=== PATIENT | male | born 1950 | race Caucasian/White ===

== ENCOUNTER 2023-11-06 21:46 | Observation (INO) ==
[2023-11-06 23:38] LABS: Basophils # (auto) 0.02 K/uL (0.00-0.20); Basophils % (auto) 0.1 %; Hematocrit (blood only) 45.8 % (42.0-52.0); Hemoglobin 15.6 g/dl (14.0-18.0); Immature Granulocytes # (auto) 0.07 K/uL (0.01-0.20); Immature Granulocytes % (auto) 0.4 %; Lymphocytes # (auto) 0.65 K/uL (1.20-3.40); Lymphocytes % (auto) 3.5 %; Mean Corpuscular Hemoglobin 31.4 pg (25.0-34.0); Mean Corpuscular Hgb Conc 34.1 g/dL (32.0-36.0); Mean Corpuscular Volume 92.2 fL (80.0-100.0); Mean Platelet Volume 12.4 fL (9.4-12.4); Monocytes # (auto) 1.15 K/uL (0.11-0.59); Monocytes % (auto) 6.3 %; Neutrophils # (auto) 16.48 K/uL (1.40-6.50); Neutrophils % (auto) 89.7 %; Platelet Count 136 K/uL (130-400); RDW Coefficient of Variation 13.7 % (11.5-14.5); RDW Standard Deviation 46.5 fL (36.4-46.3); Red Blood Count 4.97 M/uL (4.70-6.10); White Blood Count 18.37 K/ul (4.8-10.8)
[2023-11-06 23:57] LABS: Alanine Aminotransferase 4 U/L (7-52); Albumin Globulin Ratio 1.7 (0.9-2); Albumin Level 4.7 gm/dl (3.4-5.0); Alkaline Phosphatase 74 U/L (34-104); Anion Gap 10 (3-11); Aspartate Aminotransferase 18 U/L (13-39); Bilirubin,Total 1.4 mg/dl (0.2-1.0); Blood Urea Nitrogen 24 mg/dl (6-23); Calcium 9.4 mg/dl (8.6-10.3); Carbon Dioxide 28 mmol/L (21-32); Chloride 103 mmol/L (98-107); Est GFR (African American) 60.2 ml/min; Est GFR (Non-African American) 51.9 ml/min; Globulin 2.7 gm/dl (2.5-4.0); Glucose 169 mg/dl (70-99(Fasting)); Potassium 4.1 mmol/L (3.5-5.1); Sodium 141 mmol/L (136-145); Total Protein 7.4 gm/dl (6.0-8.3)
[2023-11-07] MEDS: ONDANSETRON INJ 2 MG/ML 2 ML VIAL IV STA (01:13)
[2023-11-07] MEDS: SODIUM CHLORIDE 0.9% 1,000 ML IV ONE (01:15)
[2023-11-07] MEDS: HYDROmorphone INJ 0.5 MG/0.5 ML SYR IV STA (01:17)
[2023-11-07] MEDS: OPTIRAY 320 100ml IV ONE (01:30)
[2023-11-07 01:42] LABS: Appearance Urine Clear (Clear); Bacteria Urine Automated None Seen (None Seen); Bilirubin Urine Negative (Negative); Blood Urine Negative (Negative); Cast Urine Automated >20 /lpf (0-2); Color Urine Dark Yellow; Epithelial Cell Urine Auto 0-2 /hpf (0-2); Glucose Urine UA Negative (Negative); Hyaline Casts Urine Present /lpf (None Presnt); Ketones Urine Trace (Negative); Leukocyte Esterase Urine 1+ (Negative); Mucus Urine Present (None Prsent); Nitrite Urine Negative (Negative); Protein Urine Negative (Negative); RBC Urine Automated 0-2 /hpf (0-2); Specific Gravity Urine 1.015 (1.000-1.030); Urobilinogen Urine Negative (Negative)
--- NOTE | 2023-11-07 01:48 | Emergency Department Note ---
Impression & Plan Post-operative pain, Acute UTI Admit to general surgery ED Provider Note NAME: JSAMINE REY AGE: 73 SEX: Male INFORMANT: Patient ED PROVIDER(S): Mary Chadwick DO CHIEF COMPLAINT: Abdominal pain PLAN: Disposition: Admit to general surgery MEDICAL DECISION MAKING: This is a 73-year-old male patient who underwent inguinal hernia repair earlier today who presents to the emergency department with moderate abdominal pain. He has been taking his Percocet as prescribed but the pain is unbearable. They contacted the on-call nurse and they recommended he come to the emergency department. Patient was medicated with IV Dilaudid and IV Zofran. Laboratory studies revealed a white blood cell count of 18.3. Patient was moderately dehydrated with a BUN of 24 and creatinine of 1.3. He was given a liter of normal saline solution and went for CT scan of the abdomen pelvis. Patient has an indwelling Hernández catheter secondary to urinary retention from before surgery. Urinalysis suggests a urinary tract infection. I discussed the case with general surgery and they evaluated the patient. They will admit the patient to the hospital to manage postoperative pain and treat for UTI. Care/management discussed with: Patient and his Triage Nursing notes: Reviewed and agree with them. Vital Signs: reviewed and unremarkable Additional History obtained from: His is at the bedside Prior/ Outside/ External records reviewed: I reviewed the patient's surgical notes from yesterday. Differential Diagnosis: Surgical complication, retained gas from laparoscopic surgery, bowel obstruction, obstructive uropathy Diagnostics, independently interpreted by me: Imaging studies: CT scan of the abdomen/pelvis: As per stat rad HPI: 73 year old Male arrives for evaluation of abdominal pain. Patient underwent inguinal hernia repair earlier today. Patient has had increasing abdominal pain throughout the evening. He has been using his prescribed Percocet with no relief of the pain. Upon arrival here in the ER, he states that the pain did become slightly better but still rates the discomfort as a 6- 7/10. PAST MEDICAL HISTORY: See Below, PAST SURGICAL HISTORY: See Below, SOCIAL HISTORY: See Below, HOME MEDICATIONS: See list ALLERGIES: None VITALS: See Below PHYSICAL EXAMINATION: HEENT: Head - normocephalic and atraumatic. Pupils are equal, round, and reactive to light. Extraocular eye muscles are intact, and sclera are anicteric. Nose - moist nasal mucosa without discharge. Mouth - moist buccal mucosa. Oropharynx is nonerythematous and there is no tonsillar exudate or edema noted. Neck: Supple; no cervical lymphadenopathy or nuchal rigidity Heart: Regular rate and rhythm. There is a normal S1 and S2 with no murmurs, clicks, or gallops appreciated. Lungs: Clear to auscultation bilaterally with no wheezes, rales, or rhonchi. Abdomen: Soft, surgical incisions are covered with Dermabond. There are normal bowel sounds. Abdomen is moderately distended and tympanic to percussion. Abdomen is diffusely tender to palpation. Extremities: No evidence of cyanosis, clubbing, or edema. There are easily palpable peripheral pulses. Skin: warm and dry with good turgor and no rashes. Emergency department course: The patient was initially evaluated in room D-7. A complete history and physical was performed. The patient was moved to room A- 12. IV lock was initiated and labs were drawn as above. Patient was given a dose of IV Dilaudid and IV Zofran along with a liter of normal saline solution. Patient went for CT scan of the abdomen/pelvis. A urine specimen was obtained from the Hernández catheter. I discussed the case with the PA from the general surgery team. He has evaluated the patient. Past Med/Surg History Medical History CAD (coronary artery disease) 06/2021- stents x2 Follows with Dr. Vargas/Joshua ICD (implantable cardioverter-defibrillator) in place Implanted 2021, [employer] Hernández catheter in place BPH (benign prostatic hyperplasia) Hx of myocardial infarction 06/2021- stents x2 Follows with Dr. Vargas/Joshua Parkinson's disease Surgical History History of implantable cardioverter-defibrillator (ICD) insertion 2021 Hx laparoscopic cholecystectomy History of esophagogastroduodenoscopy (EGD) Hx of colonoscopy [place] teeth extracted Hx of sinus surgery Hx of tonsillectomy History of cardiac cath 06/2021- stents x2 Social History Smoking Status: Never smoker Second Hand Exposure: No; Do You Dip or Chew Tobacco: Yes (hx-only when playing ball; advised); Hx Alcohol Use: Yes (quit 1976) Hx Substance Use: No Preferred Language: Yakut Communication Ability: Effective Manager Reimbursement Required: No Beliefs That Will Affect Care: None Current Living Situation: Spouse and Family Feels Safe at Home: Yes Assistive Devices: Glasses Allergies Allergies Allergy/AdvReac Type Severity Reaction Status Date / Time No Known Allergies Allergy Verified 11/07/23 00:53 Home Meds Home Medications Medication Instructions Recorded Confirmed amantadine HCl 100 mg capsule 100 mg PO BID 10/25/23 11/07/23 aspirin 81 mg capsule 81 mg PO HS 10/25/23 11/07/23 carbidopa 25 mg-levodopa 100 mg 2 tab PO QID 10/25/23 11/07/23 tablet entacapone 200 mg tablet 400 mg PO QID 10/25/23 11/07/23 finasteride 5 mg tablet 5 mg PO QAM 10/25/23 11/07/23 metoprolol succinate 25 mg 25 mg PO QAM 10/25/23 11/07/23 tablet,extended release 24 hr tamsulosin 0.4 mg capsule 0.8 mg PO HS 10/25/23 11/07/23 valacyclovir 500 mg tablet 250 mg PO UD 10/25/23 11/07/23 Previous Rx's Medication Instructions Recorded oxycodone-acetaminophen 5 mg-325 1 tab PO Q6H PRN pain #14 tabs 11/06/23 mg tablet (Percocet) Results & Data (ED) Vital Signs Vital Signs - 24 hr 11/06/23 21:51 11/07/23 00:42 11/07/23 01:13 Temperature 36.8 C Temperature Source Temporal Artery Scan Pulse Rate 91 H 84 Pulse Rate [Apical] Pulse Rate [Finger] 87 Respiratory Rate 19 20 Respiratory Effort / Characteristics Non-Labored Spontaneous Non-Labored Spontaneous Respiratory Depth Normal Normal Respiratory Pattern Blood Pressure 137/88 Blood Pressure [Left Arm] 138/86 Blood Pressure Mean 104 Blood Pressure Mean [Left Arm] 103 Pulse Oximetry 94 98 Oxygen Delivery Method Room Air Room Air Sepsis Recent Fever Within 48 Hours No Sepsis New/Unexplained Change in Mental Status N/A Sepsis Action Taken by Nursing No Action Required 11/07/23 04:05 Temperature Temperature Source Pulse Rate Pulse Rate [Apical] 89 Pulse Rate [Finger] Respiratory Rate 17 Respiratory Effort / Characteristics Non-Labored Spontaneous Respiratory Depth Normal Respiratory Pattern Regular Blood Pressure Blood Pressure [Left Arm] 124/80 Blood Pressure Mean Blood Pressure Mean [Left Arm] 94 Pulse Oximetry 95 Oxygen Delivery Method Room Air Sepsis Recent Fever Within 48 Hours Sepsis New/Unexplained Change in Mental Status Sepsis Action Taken by Nursing Laboratory Data 11/06/23 23:22 11/06/23 23:22 Lab Results 11/06/23 11/07/23 Range/Units 23:22 01:05 WBC 18.37 H (4.8-10.8) K/ul RBC 4.97 (4.70-6.10) M/uL Hgb 15.6 (14.0-18.0) g/dl Hct 45.8 (42.0-52.0) % MCV 92.2 (80.0-100.0) fL MCH 31.4 (25.0-34.0) pg MCHC 34.1 (32.0-36.0) g/dL RDW Std Deviation 46.5 H (36.4-46.3) fL RDW Coeff of Lisette 13.7 (11.5-14.5) % Plt Count 136 (130-400) K/uL MPV 12.4 (9.4-12.4) fL Immature Gran % (Auto) 0.4 % Neut % (Auto) 89.7 % Lymph % (Auto) 3.5 % Robertson % (Auto) 6.3 % Eos % (Auto) 0.0 % Baso % (Auto) 0.1 % Neut # (Auto) 16.48 H (1.40-6.50) K/uL Lymph # (Auto) 0.65 L (1.20-3.40) K/uL Robertson # (Auto) 1.15 H (0.11-0.59) K/uL Eos # (Auto) 0.00 (0.00-0.50) K/uL Baso # (Auto) 0.02 (0.00-0.20) K/uL Immature Gran # (Auto) 0.07 (0.01-0.20) K/uL Sodium 141 (136-145) mmol/L Potassium 4.1 (3.5-5.1) mmol/L Chloride 103 (98-107) mmol/L Carbon Dioxide 28 (21-32) mmol/L Anion Gap 10 (3-11) BUN 24 H (6-23) mg/dl Creatinine 1.33 (0.6-1.4) mg/dl Est Cr Clr Drug Dosing Not Reportable Est GFR ( Amer) 60.2 ml/min Est GFR (Non-Af Amer) 51.9 ml/min BUN/Creatinine Ratio 18.0 (10-20) Glucose 169 H (70-99(Fasting)) mg/dl Calcium 9.4 (8.6-10.3) mg/dl Total Bilirubin 1.4 H (0.2-1.0) mg/dl AST 18 (13-39) U/L ALT 4 L (7-52) U/L Alkaline Phosphatase 74 (34-104) U/L Total Protein 7.4 (6.0-8.3) gm/dl Albumin 4.7 (3.4-5.0) gm/dl Globulin 2.7 (2.5-4.0) gm/dl Albumin/Globulin Ratio 1.7 (0.9-2) Urine Color Dark Yellow Urine Appearance Clear (Clear) Urine pH 5.0 (4.5-7.5) Ur Specific Gravel Switch 1.015 (1.000-1.030) Urine Protein Negative (Negative) Urine Glucose (UA) Negative (Negative) Urine Ketones Trace H (Negative) Urine Blood Negative (Negative) Urine Nitrite Negative (Negative) Urine Bilirubin Negative (Negative) Urine Urobilinogen Negative (Negative) Ur Leukocyte Esterase 1+ H (Negative) Urine WBC (Auto) 6-10 H (0-5) /hpf Urine RBC (Auto) 0-2 (0-2) /hpf U Hyaline Cast (Auto) >20 H (0-2) /lpf U Epithel Cells (Auto) 0-2 (0-2) /hpf Urine Bacteria (Auto) None Seen (None Seen) Hyaline Casts Present A (None Presnt) /lpf Urine Mucus Present A (None Prsent) Administered Medications Discontinued Medications Hydromorphone HCl (Hydromorphone Inj 0.5 Mg/0.5 Ml Syr) 0.5 mg IV NOW STA Stop: 11/07/23 01:02 Last Admin: 11/07/23 01:17 Dose: 0.5 mg Documented By: MED Sodium Chloride (Nss) 1,000 mls @ 999 mls/hr IV .Q1H1M ONE Stop: 11/07/23 02:04 Last Infusion: 11/07/23 04:21 Dose: Infused Documented By: commercial escrow assistant: 11/07/23 01:15 Dose: 999 mls/hr Documented By: NGUYỄN Ceftriaxone Sodium (Rocephin) 1,000 mg in 50 mls @ 100 mls/hr IV NOW STA Stop: 11/07/23 06:09 Last Admin: 11/07/23 06:10 Dose: 100 mls/hr Documented By: NGUYỄN Ioversol (Optiray 320 100ml) 92 ml IV ONCE ONE Stop: 11/07/23 01:30 Last Admin: 11/07/23 01:30 Dose: 92 ml Documented By: CHANDAN Miscellaneous (Patient's Height &/Or Weight Needed) 1 each N/A NOW STA Stop: 11/07/23 04:33 Last Admin: 11/07/23 04:59 Dose: Not Given Documented By: NGUYỄN Ondansetron HCl (Ondansetron Inj 2 Mg/Ml 2 Ml Vial) 4 mg IV NOW STA Stop: 11/07/23 01:02 Last Admin: 11/07/23 01:13 Dose: 4 mg Documented By: MED Imaging Data Radiologist's Impression: Abdomen/Pelvis CT 11/07/23 01:01 Exam(s): CT ABDOMEN + PELVIS With Contrast IV Amt: 92 cc opti 320 EXAM: CT Abdomen and Pelvis With Intravenous Contrast CLINICAL HISTORY: s/p inguinal hernia repair pain. TECHNIQUE: Axial computed tomography images of the abdomen and pelvis with intravenous contrast. CTDI is 10.13 mGy and DLP is 602.89 mGy-cm. Automated exposure control was utilized for the study. A dose lowering technique was utilized adhering to the principles of ALARA. CONTRAST: Patient received 92 cc opti 320 of IV contrast COMPARISON: CT abdomen and pelvis with contrast dated 10/24/2023 FINDINGS: Lung bases: Subsegmental atelectatic changes noted in the posterior right lower lobe presumably related to elevated right hemidiaphragm. Heart: Cardiomegaly with evidence of right ventricular pacer lead. ABDOMEN: Liver: Unremarkable. No mass. Gallbladder and bile ducts: Cholecystectomy. Cholecystectomy. Common bile duct is prominent measuring 8 cm in diameter. No common bile duct stone is seen. Pancreas: Unremarkable. No mass. No ductal dilation. Spleen: Unremarkable. No splenomegaly. Adrenals: Unremarkable. No mass. Kidneys and ureters: The kidneys demonstrate normal enhancement. Predominantly subcentimeter cortical cysts are noted. The largest cyst inferiorly on the left measures 13 mm. Stomach and bowel: There has been interval surgical repair of the left inguinal hernia. There is no residual bowel herniation. However, there is prominent gas extending from the left lateral pelvic wall into the scrotum along the presumed spermatic cord. In addition, there is abnormal heterogeneous soft tissue density distending the scrotum measuring 4.3 x 5.2 cm inferiorly. The stomach is moderately distended with fluid and gas. No evidence for focal high-grade bowel obstruction. Fluid and gas distended small bowel loops in the right upper quadrant are nonspecific in appearance. Mild to moderate stool burden. Incidental normal caliber appendix in the retrocecal region. No definite focal asymmetric mucosal thickening. PELVIS: Appendix: See above. Bladder: A Hernández catheter is noted in the bladder. Small left posterior bladder diverticulum, measuring 12 mm. Reproductive: Prostatic hypertrophy. ABDOMEN and PELVIS: Intraperitoneal space: Mild pneumoperitoneum noted underlying the right hemidiaphragm. There is also extraperitoneal gas along the deep margin of the left rectus muscle. No free intraperitoneal fluid. Bones/joints: Stable postsurgical changes with laminectomy defects from L3-L5 levels. No acute osseous abnormality. Multilevel degenerative changes. No dislocation. Soft tissues: There is extensive tracking of subcutaneous emphysema along the anterior and anterolateral abdominopelvic wall, left greater than right. Vasculature: Atherosclerotic calcification of the aorta. No dissection or aneurysm. Lymph nodes: Unremarkable. No enlarged lymph nodes. IMPRESSION: 1. There has been interval surgical repair of the left inguinal hernia. There is no residual bowel herniation. However, there is prominent gas extending from the left lateral pelvic wall into the scrotum along the presumed spermatic cord. In addition, there is abnormal heterogeneous soft tissue density distending the scrotum measuring 4.3 x 5.2 cm inferiorly. Findings are presumed postoperative hematoma extending into the scrotum. 2. There is extensive tracking of subcutaneous emphysema along the anterior and anterolateral abdominopelvic wall, left greater than right. Tracking subcutaneous emphysema has been known to cause clinical symptoms. 3. Mild pneumoperitoneum noted underlying the right hemidiaphragm. There is also extraperitoneal gas along the deep margin of the left rectus muscle. This is presumed related to postoperative status. Please correlate with time line of surgery. 4. Common bile duct is prominent measuring 8 cm in diameter. This is likely related to cholecystectomy. Electronically signed by: Tremayne Francis MD 11/07/23 02:42 AM Discharge Plan Visit Data Chief Complaint: Pain (Generalized) Stated Complaint: SEVERE PAIN FROM SURGERY ED Provider: Mary Chadwick Discharge Problem: Post-operative pain, Acute UTI Discharge Instructions Interventions: ED Discharge Assessment Last Done: 11/07/23 05:55
--- NOTE | 2023-11-07 03:13 | CT Scan Report ---
Exam(s): CT ABDOMEN + PELVIS With Contrast IV Amt: 92 cc opti 320 EXAM: CT Abdomen and Pelvis With Intravenous Contrast CLINICAL HISTORY: s/p inguinal hernia repair pain. TECHNIQUE: Axial computed tomography images of the abdomen and pelvis with intravenous contrast. CTDI is 10.13 mGy and DLP is 602.89 mGy-cm. Automated exposure control was utilized for the study. A dose lowering technique was utilized adhering to the principles of ALARA. CONTRAST: Patient received 92 cc opti 320 of IV contrast COMPARISON: CT abdomen and pelvis with contrast dated 10/24/2023 FINDINGS: Lung bases: Subsegmental atelectatic changes noted in the posterior right lower lobe presumably related to elevated right hemidiaphragm. Heart: Cardiomegaly with evidence of right ventricular pacer lead. ABDOMEN: Liver: Unremarkable. No mass. Gallbladder and bile ducts: Cholecystectomy. Cholecystectomy. Common bile duct is prominent measuring 8 cm in diameter. No common bile duct stone is seen. Pancreas: Unremarkable. No mass. No ductal dilation. Spleen: Unremarkable. No splenomegaly. Adrenals: Unremarkable. No mass. Kidneys and ureters: The kidneys demonstrate normal enhancement. Predominantly subcentimeter cortical cysts are noted. The largest cyst inferiorly on the left measures 13 mm. Stomach and bowel: There has been interval surgical repair of the left inguinal hernia. There is no residual bowel herniation. However, there is prominent gas extending from the left lateral pelvic wall into the scrotum along the presumed spermatic cord. In addition, there is abnormal heterogeneous soft tissue density distending the scrotum measuring 4.3 x 5.2 cm inferiorly. The stomach is moderately distended with fluid and gas. No evidence for focal high-grade bowel obstruction. Fluid and gas distended small bowel loops in the right upper quadrant are nonspecific in appearance. Mild to moderate stool burden. Incidental normal caliber appendix in the retrocecal region. No definite focal asymmetric mucosal thickening. PELVIS: Appendix: See above. Bladder: A Hernández catheter is noted in the bladder. Small left posterior bladder diverticulum, measuring 12 mm. Reproductive: Prostatic hypertrophy. ABDOMEN and PELVIS: Intraperitoneal space: Mild pneumoperitoneum noted underlying the right hemidiaphragm. There is also extraperitoneal gas along the deep margin of the left rectus muscle. No free intraperitoneal fluid. Bones/joints: Stable postsurgical changes with laminectomy defects from L3-L5 levels. No acute osseous abnormality. Multilevel degenerative changes. No dislocation. Soft tissues: There is extensive tracking of subcutaneous emphysema along the anterior and anterolateral abdominopelvic wall, left greater than right. Vasculature: Atherosclerotic calcification of the aorta. No dissection or aneurysm. Lymph nodes: Unremarkable. No enlarged lymph nodes. IMPRESSION: 1. There has been interval surgical repair of the left inguinal hernia. There is no residual bowel herniation. However, there is prominent gas extending from the left lateral pelvic wall into the scrotum along the presumed spermatic cord. In addition, there is abnormal heterogeneous soft tissue density distending the scrotum measuring 4.3 x 5.2 cm inferiorly. Findings are presumed postoperative hematoma extending into the scrotum. 2. There is extensive tracking of subcutaneous emphysema along the anterior and anterolateral abdominopelvic wall, left greater than right. Tracking subcutaneous emphysema has been known to cause clinical symptoms. 3. Mild pneumoperitoneum noted underlying the right hemidiaphragm. There is also extraperitoneal gas along the deep margin of the left rectus muscle. This is presumed related to postoperative status. Please correlate with time line of surgery. 4. Common bile duct is prominent measuring 8 cm in diameter. This is likely related to cholecystectomy. Electronically signed by: Tremayne Francis MD 11/07/23 02:42 AM
--- NOTE | 2023-11-07 04:17 | History & Physical Report ---
<Statement entered by Aaron Burt DO - 11/07/23 08:35> This case was discussed with the surgical PA, I agree with the plan. Date of Service November 07, 2023 Assessment & Plan (1) Postoperative pain: Plan: I evaluated the patient in room A12 in the emergency department. I suspect the patient's pain is likely postsurgical and are due to to combination of his surgical incisions as well as retained air as a result of his laparoscopic procedure After discussion with the patient he does not feel he will be able to manage at home at the present time so we will admit the patient for pain control At the present time the patient is noted to be nontoxic-appearing, normotensive without tachycardia and he is afebrile. At the present time I do not see anything on his physical exam or CT scan that would necessitate an urgent reoperation. We will provide analgesics Will provide antiemetics Will keep n.p.o. for the present time Will provide IV fluid for gentle hydration The patient is noted to have an abnormal urinalysis. We will check a urine culture and place him on empiric antibiotics in the form of Rocephin Will notify Dr. Herrmann of patient's admission in the morning For the present time we will use SCDs for DVT prevention, no chemical means due to his recent surgery. If he does remain hospitalized consideration may be given to providing additional means of DVT prophylaxis at that time I discussed CODE STATUS with the patient and he notes in the event of cardiopulmonary arrest he would like to be a level 1 full code History of Present Illness Chief Complaint: Pain following hernia surgery Primary Care Provider: Murali Barlow This is a 73-year-old male who underwent a laparoscopic left inguinal hernia repair utilizing mesh by Dr. Herrmann of [facility] surgery on 11/07/2023. Patient notes initially postoperatively he was doing well and was deemed stable for discharge home. He notes he was doing reasonly well at home however several hours after returning home he began to develop some worsening abdominal pain that got progressively worse throughout the day. The patient and his called the answering service at approximately 7:13 PM on 11/06/2023. They noted at that time that he was utilizing Percocet which was prescribed to him. He did take a Percocet at 2:30 PM and an additional Percocet at 5:30 PM on 11/06/2023 with little relief of his pain. In addition he was utilizing ice packs along his surgical incisionsdespite these modalities he did not have adequate pain control. He spoke with this provider on the phone and presented options to the patient which included trying to take an additional Percocet to see if this helped his pain or if the pain was too severe that he would need to be evaluated in the emergency department. The patient initially tried taking an additional Percocet and self monitor at home to see if this would improve his pain. I did call the patient back approximately 2 hours later to see if he had had any improvement or resolution of his pain which he did not and I again advised him to report to the emergency department for further evaluation. Since arrival to the emergency department the patient has had labs and imaging which I independent reviewed. The patient had a CT scan of the abdomen pelvis that showed patient had repair of her previously noted left inguinal hernia. There is no evidence of residual hernia. There is prominent gas which extended from the left lateral pelvic wall into the scrotum. There is also soft tissue density in the scrotum measuring 4.3 x 5.2 cm which interpreting radiologist felt could represent a postoperative hematoma. Patient had extensive subcutaneous emphysema tracking along the anterior and anterior lateral abdominal pelvic wall which appeared greater on the left side. In addition, there is mild pneumoperitoneum under the right hemidiaphragm and some extraperitoneal gas along the margin of the left rectus muscle. Labs include a CBC her white blood cell count was elevated at 18.3. Hemoglobin and hematocrit along with the platelet count are normal. Chemistry profile showed sodium and potassium and the creatinine are normal. BUN had a slight elevation at 24. Urinalysis did show 1+ leukocyte Estrace and 6-10 white blood cells per high- power field with no bacteria or nitrites. After evaluation by the emergency department and completion of his labs and imaging I evaluated the patient. Since being discharged home the patient says that he has not had any lightheadedness or dizziness. The patient notes that he was able to ambulate from his house to his car. He denies any chest pain or shortness of breath. He denies any fevers, shakes, or chills. He has not had any falls. He notes that he has not had anything to eat or drink since his surgery as he has little appetite. When asked where his pain is he notes that the pain is generalized throughout his abdomen but near his surgical incisions. He does not report much in the way of scrotal pain. He notes that he has not had any nausea or vomiting. He has not had a bowel movement since his surgery but he is passing flatus. The patient does have a history of issues with urinary retention and he has a chronic indwelling Hernández catheter which remains in place. In addition, the patient does report that he has a history of Parkinson's disease but does not have any current issues with this problem. Since arrival to the emergency department the patient has been treated with 1 L of intravenous normal saline solution as well as 0.5 mg of intravenous Dilaudid. He is also received 4 mg of Zofran. At the time of my interview he appeared to be resting comfortably in bed and did not appear to be in any distress. Allergies Allergy/AdvReac Type Severity Reaction Status Date / Time No Known Allergies Allergy Verified 11/07/23 00:53 Home Medications Medication Instructions Recorded Confirmed Type amantadine HCl 100 mg capsule 100 mg PO BID 10/25/23 11/07/23 History aspirin 81 mg capsule 81 mg PO HS 10/25/23 11/07/23 History carbidopa 25 mg-levodopa 100 mg 2 tab PO QID 10/25/23 11/07/23 History tablet entacapone 200 mg tablet 400 mg PO QID 10/25/23 11/07/23 History finasteride 5 mg tablet 5 mg PO QAM 10/25/23 11/07/23 History metoprolol succinate 25 mg 25 mg PO QAM 10/25/23 11/07/23 History tablet,extended release 24 hr tamsulosin 0.4 mg capsule 0.8 mg PO HS 10/25/23 11/07/23 History valacyclovir 500 mg tablet 250 mg PO UD 10/25/23 11/07/23 History oxycodone-acetaminophen 5 mg-325 1 tab PO Q6H PRN pain #14 tabs 11/06/23 11/07/23 Rx mg tablet (Percocet) Past Med/Surg History Medical History CAD (coronary artery disease) 06/2021- stents x2 Follows with Dr. Vargas/Joshua ICD (implantable cardioverter-defibrillator) in place Implanted 2021, [employer] Hernández catheter in place BPH (benign prostatic hyperplasia) Hx of myocardial infarction 06/2021- stents x2 Follows with Dr. 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 Beliefs That Will Affect Care: None Current Living Situation: Spouse and Family Feels Safe at Home: Yes Assistive Devices: Glasses Review of Systems Constitutional: no fever and no chills Eyes: Patient reports no visual problems Ear, Nose, Mouth, Throat: no hearing loss Respiratory: no cough and no dyspnea Cardiovascular: no chest pain Gastrointestinal: as per Subjective / HPI and + abdominal pain; no nausea and no vomiting Genitourinary: + as per Subjective / HPI (Chronic indwe lling Hernández catheter) Musculoskeletal: no back pain Integumentary: no rash Neurologic: no localized weakness Physical Exam Constitutional: WD/WN, vitals as above Eyes: no conjunctival abnormality ENMT: Ears: no hearing impairment and no external ear abnormality Mouth: no oropharynx abnormality Neck: trachea midline Respiratory: normal respiratory effort; no respiratory distress and no labored breathing Patient was not using accessory muscles to aid in respiration. His respiratory effort was slightly diminished as taking deep inspirations did cause some worsening abdominal pain Cardiovascular: Rate/Rhythm: regular rate and regular rhythm Vessels: dorsalis pedis pulses present and radial pulses present Gastrointestinal (Abdomen): Patient's abdomen has mild distention. Bowel sounds are present. Patient has laparoscopic incisions which are all clean, dry, and intact. Patient had some generalized pain with palpation of his abdomen which seemed appropriate. There is no rebound tenderness or guarding. Patient's scrotum was examined and both testicles were present. Musculoskeletal: No calf tenderness. Feet are warm and well-perfused Skin: no rashes Neurologic: Patient is able move all 4 extremities and follows simple commands without noted focal deficits Psychiatric: A+Ox3, euthymic affect Genitourinary: Hernández catheter is in place and appears patent. Results & Data Results & Data Vital Signs (Past 12 Hours) Vital Signs Temp Pulse Pulse Pulse Resp BP BP 11/07/23 04:05 89 17 124/80 11/07/23 01:13 84 11/07/23 00:42 87 20 138/86 11/06/23 21:51 36.8 C 91 H 19 137/88 Pulse Ox O2 Del Method 11/07/23 04:05 95 Room Air 11/07/23 01:13 11/07/23 00:42 98 Room Air 11/06/23 21:51 94 Room Air PG Care Time/CCT Total # of Minutes Spent Total Time Spent with Patient: Total time spent is greater than 50% in coordination of care (as documented) at patient's floor/unit and/or counseling patient: Coding Level of Care Code None Diagnoses Postoperative pain G89.18
[2023-11-07] MEDS ORDERED: ACETAMINOPHEN 1,000 MG/100 ML VIAL IV PRN (04:18)
[2023-11-07] MEDS ORDERED: MoRPHine SULFATE 2 MG/ML CARP IV PRN (04:18)
[2023-11-07] MEDS: Patient's HEIGHT &/or WEIGHT Needed STA (04:59)
[2023-11-07] MEDS: cefTRIAXone SODIUM 1,000 MG/50 ML BAG IV STA (06:10)
[2023-11-07] MEDS: SODIUM CHLORIDE 0.9% 1,000 ML IV SCH (06:46)
[2023-11-07] MEDS: AMANTADINE HCL 100 MG CAPSULE PO SCH (09:21)
[2023-11-07] MEDS: FINASTERIDE 5 MG TAB PO SCH (09:21)
[2023-11-07] MEDS: METOPROLOL SUCC 25MG EXT REL TAB PO SCH (09:23)
[2023-11-07] MEDS: CARBIDOPA/LEVODOPA 25/100MG TAB PO SCH (09:23)
[2023-11-07] MEDS: ENTACAPONE 200 MG TAB PO SCH (09:24)
[2023-11-07] MEDS ORDERED: oxyCODONE/ACETAMINOPHEN 5mg/325mg TAB PO PRN (12:31)
[2023-11-07] MEDS ORDERED: ONDANSETRON INJ 2 MG/ML 2 ML VIAL IV PRN (12:31)
--- NOTE | 2023-11-07 12:34 | Surgery Progress Note ---
Date of Service November 07, 2023 Assessment & Plan (1) Post-operative pain: Plan: begin clears pain improved likely discharge in AM if continues to imprve Admission and Anticipated Discharge Date Admission Date: November 07, 2023 Subjective pain improved Review of Systems Constitutional: no fever and no chills Respiratory: no cough and no dyspnea Cardiovascular: no chest pain Gastrointestinal: + abdominal pain; no nausea, no vomiting and no change in bowel habits Genitourinary: no dysuria Physical Exam Constitutional: + thin Respiratory: normal respiratory effort, lungs clear to auscultation Cardiovascular: RRR, no murmur, no edema Gastrointestinal (Abdomen): Inspection/Auscultation: abdomen normal to inspection, + abdomen distended and normal bowel sounds Percussion/Palpation: + abdomen tender and abdomen soft; no guarding and abdomen not rigid Musculoskeletal: Head/Neck/Chest: normocephalic and head atraumatic Results & Data Vital Signs (Past 12 Hours) Vital Signs Temp Pulse Pulse Pulse Resp BP BP 11/07/23 12:18 36.8 C 71 20 128/79 11/07/23 07:36 83 11/07/23 07:23 82 14 11/07/23 07:23 125/74 11/07/23 07:23 36.4 C L 83 15 125/74 11/07/23 07:00 82 13 11/07/23 06:00 82 12 11/07/23 05:09 85 11/07/23 05:00 90 18 11/07/23 04:43 90 17 124/80 11/07/23 04:05 89 17 11/07/23 04:05 124/80 11/07/23 04:05 89 17 124/80 11/07/23 04:00 89 19 11/07/23 03:00 90 16 11/07/23 02:05 87 14 11/07/23 01:13 84 20 11/07/23 01:13 84 11/07/23 00:42 87 20 138/86 Pulse Ox O2 Del Method 11/07/23 12:18 95 Room Air 11/07/23 07:36 11/07/23 07:23 97 11/07/23 07:23 11/07/23 07:23 96 Room Air 11/07/23 07:00 95 11/07/23 06:00 97 11/07/23 05:09 11/07/23 05:00 94 11/07/23 04:43 95 Room Air 11/07/23 04:05 95 11/07/23 04:05 11/07/23 04:05 95 Room Air 11/07/23 04:00 96 11/07/23 03:00 96 11/07/23 02:05 96 11/07/23 01:13 98 11/07/23 01:13 11/07/23 00:42 98 Room Air
[2023-11-07] MEDS: oxyCODONE/ACETAMINOPHEN 5mg/325mg TAB PO PRN (19:48)
[2023-11-07] MEDS: TAMSULOSIN HCL 0.4 MG CAP PO SCH (20:14)
[2023-11-07] MEDS: ASPIRIN 81 MG ECTAB PO SCH (20:15)
[2023-11-07] MEDS: ONDANSETRON INJ 2 MG/ML 2 ML VIAL IV PRN (23:24)
[2023-11-08] MEDS: cefTRIAXone SODIUM 1,000 MG in DEXTROSE 5 % MINI-B 50 ML IV SCH (06:14)
[2023-11-08] MEDS: FAMOTIDINE 20MG IV PUSH 20 MG/5 ML SYR IV ONE (08:59)
[2023-11-08] MEDS: valACYclovir HCL 500 MG TABLET PO SCH (09:03)
--- NOTE | 2023-11-08 09:20 | Surgery Progress Note ---
Date of Service November 08, 2023 Assessment & Plan (1) Post-operative pain: Plan: POD # 2 s/p laparoscopic left inguinal hernia repair with mesh avss postop pain controlled no n,v but slightly distended, passing gas Plan: Continue clears Pain management as needed needs incentive spirometer PT/OT to help with OOB and ambulation, baseline Parkinsons but has not been out of bed ambulating Discussed with Dr. Herrmann who agrees with above. Admission and Anticipated Discharge Date Admission Date: November 07, 2023 Subjective feeling better pain currently 09/21, Percocet has helped but has not taken since 7 pm last evening no chest pain or sob +heartburn No n,v passing gas, no bowel movement urinating via fay (to be removed in office on Saturday) Has not been up ambulating Physical Exam Constitutional: WD/WN, vitals as above cooperative and comfortable; no acute distress and not ill appearing Respiratory: no respiratory distress, no labored breathing and no retractions Auscultation: + diminished lung sounds Cardiovascular: Rate/Rhythm: regular rate and regular rhythm Gastrointestinal (Abdomen): Inspection/Auscultation: abdomen normal to inspection, + abdomen distended (mild), normal bowel sounds and + abdominal surgical incision (c/d/i with dermabond) Percussion/Palpation: + abdomen tender (generalized) and abdomen soft; no guarding and abdomen not rigid Skin: no rashes, warm and dry Psychiatric: Orientation: alert and oriented x 3 Results & Data Vital Signs (Past 12 Hours) Vital Signs Temp Pulse Resp BP Pulse Ox O2 Del Method 11/08/23 07:16 37.0 C 65 18 153/85 H 95 Room Air
[2023-11-09] MEDS ORDERED: Nursing to Pharmacy Communication SCH (04:45)
--- NOTE | 2023-11-09 10:06 | Surgery Progress Note ---
Date of Service November 09, 2023 Assessment & Plan (1) Post-operative pain: Plan: POD # 3 s/p laparoscopic left inguinal hernia repair with mesh avss postop pain controlled no n,v but slightly distended, passing gas Plan: Continue clears Pain management as needed needs incentive spirometer PT/OT to help with OOB and ambulation, baseline Parkinsons but has not been out of bed ambulating will discharge to home this afternoon if tolerating pain medicine and diet Admission and Anticipated Discharge Date Admission Date: November 07, 2023 Subjective feeling better minimal pain no chest pain or sob +heartburn No n,v passing gas, no bowel movement urinating via fay (to be removed in office on Saturday) Has not been up ambulating Physical Exam Physical Exam: AFVSS NAD, A&O x 3 Abdomen: Soft, mild TTP in lower abdomen Results & Data Vital Signs (Past 12 Hours) Vital Signs Temp Pulse Resp BP Pulse Ox O2 Del Method 11/09/23 07:33 36.8 C 60 18 110/52 L 94 Room Air
--- NOTE | 2023-11-14 11:44 | Discharge Summary ---
Date of Service November 14, 2023 Admission HPI Per Admitting Provider This is a 73-year-old male who underwent a laparoscopic left inguinal hernia repair utilizing mesh by Dr. Herrmann of [facility] surgery on 11/07/2023. Patient notes initially postoperatively he was doing well and was deemed stable for discharge home. He notes he was doing reasonly well at home however several hours after returning home he began to develop some worsening abdominal pain that got progressively worse throughout the day. The patient and his called the answering service at approximately 7:13 PM on 11/06/2023. They noted at that time that he was utilizing Percocet which was prescribed to him. He did take a Percocet at 2:30 PM and an additional Percocet at 5:30 PM on 11/06/2023 with little relief of his pain. In addition he was utilizing ice packs along his surgical incisionsdespite these modalities he did not have adequate pain control. He spoke with this provider on the phone and presented options to the patient which included trying to take an additional Percocet to see if this helped his pain or if the pain was too severe that he would need to be evaluated in the emergency department. The patient initially tried taking an additional Percocet and self monitor at home to see if this would improve his pain. I did call the patient back approximately 2 hours later to see if he had had any improvement or resolution of his pain which he did not and I again advised him to report to the emergency department for further evaluation. Since arrival to the emergency department the patient has had labs and imaging which I independent reviewed. The patient had a CT scan of the abdomen pelvis that showed patient had repair of her previously noted left inguinal hernia. There is no evidence of residual hernia. There is prominent gas which extended from the left lateral pelvic wall into the scrotum. There is also soft tissue density in the scrotum measuring 4.3 x 5.2 cm which interpreting radiologist felt could represent a postoperative hematoma. Patient had extensive subcutaneous emphysema tracking along the anterior and anterior lateral abdominal pelvic wall which appeared greater on the left side. In addition, there is mild pneumoperitoneum under the right hemidiaphragm and some extraperitoneal gas along the margin of the left rectus muscle. Labs include a CBC her white blood cell count was elevated at 18.3. Hemoglobin and hematocrit along with the platelet count are normal. Chemistry profile showed sodium and potassium and the creatinine are normal. BUN had a slight elevation at 24. Urinalysis did show 1+ leukocyte Estrace and 6-10 white blood cells per high- power field with no bacteria or nitrites. After evaluation by the emergency department and completion of his labs and imaging I evaluated the patient. Since being discharged home the patient says that he has not had any lightheadedness or dizziness. The patient notes that he was able to ambulate from his house to his car. He denies any chest pain or shortness of breath. He denies any fevers, shakes, or chills. He has not had any falls. He notes that he has not had anything to eat or drink since his surgery as he has little appetite. When asked where his pain is he notes that the pain is generalized throughout his abdomen but near his surgical incisions. He does not report much in the way of scrotal pain. He notes that he has not had any nausea or vomiting. He has not had a bowel movement since his surgery but he is passing flatus. The patient does have a history of issues with urinary retention and he has a chronic indwelling Fay catheter which remains in place. In addition, the patient does report that he has a history of Parkinson's disease but does not have any current issues with this problem. Since arrival to the emergency department the patient has been treated with 1 L of intravenous normal saline solution as well as 0.5 mg of intravenous Dilaudid. He is also received 4 mg of Zofran. At the time of my interview he appeared to be resting comfortably in bed and did not appear to be in any distress. Principal Diagnosis postop pain Discharge Data Allergies Allergy/AdvReac Type Severity Reaction Status Date / Time No Known Allergies Allergy Verified 11/07/23 00:53 Consultations 11/07/23 03:51 Consult General Surgery Stat 11/07/23 04:39 ED Decision to Admit Stat Ordered Studies 11/07/23 01:01 CT Abd and Pelvis [CT abd pelvis IV con only] Stat Hospital Course (1) Post-operative pain: Patient presented to ED in the evening of his laparoscopic left inguinal hernia repair by DR. Herrmann (11/06/23) due to postoperative pain. Patient had CT scan which showed postoperative findings. No other acute changes. Patient admitted to hospital for postoperative pain control. His diet was slowly advanced as tolerated and activity as tolerated once pain was better controlled. PT/OT was consulted to help with ambulation once pain better controlled. Patient had indwelling fay catehter preoperatively and this was kept in place as he had outpatient follow-up already scheduled for removal. He was discharged home on POD # 3 in stable condition. Total Time Total Time Spent Total Time Spent (In Minutes): 20 Discharge Plan Discharge Items Patient Disposition: Home - Self-Care Reason For Visit: POST-OP PAIN Discharge Diagnosis: s/p laparoscopic left inguinal hernia repair postop pain Activity: Per Instructions section Non-emergency contact: Primary Care Provider and Surgeon Call non-emergency contact if: you have any medication questions, your pain is worsening, you have a fever, your temperature is above 101, your wound has increased redness, your wound has increased drainage and your wound pain has increased Follow-up/Referrals: Murali Barlow [Primary Care Provider] - Diet: Regular Addtl Attending Provider Instructions: Post-Surgical ~Discharge Instructions Activity Recommendations: - lifting limitation: (20 pounds for 4-6 weeks), - exercise/sex/sports limit: (nonstrenuous for 2 weeks), - driving or machine use limit: (none for 1 week or until pain free and no longer taking narcotic pain medication), - Shower/bathe limit: (may shower) Diet: - Resume previous diet SPECIAL CARE INSTRUCTIONS: - May shower. Let water run over area and pat dry. - Leave surgical glue on incisions. Do not pick at this. - Call the surgeon's office with any questions or concerns - - (ex. temperature higher than 101 degrees F, excessive bleeding or pain). MEDICATIONS: - Resume previous medications unless instructed otherwise by your surgeon. - Ibuprofen 600 mg every 6 hours with food - Percocet 1 every 4 hours, as needed for pain FOLLOW UP VISIT: - If not already scheduled, please call the office to schedule a two week follow-up appointment. Office number As for the urinary catheter, you need to follow-up with your primary care doctor /urologist as scheduled on Saturday to determine removal and further management of the urinary catheter. Pending Studies at Discharge: No Stand-Alone Forms: My [employer], Smoking Cessation Medications and DC Order Prescriptions: Continued valacyclovir 500 mg tablet 250 mg PO UD Rx Instructions: take 1/2 tablet sun/mon/wed/fri mornings amantadine HCl 100 mg capsule 100 mg PO BID entacapone 200 mg tablet 400 mg PO QID tamsulosin 0.4 mg capsule 0.8 mg PO HS metoprolol succinate 25 mg tablet extended release 24 hr 25 mg PO QAM carbidopa-levodopa 25-100 mg tablet 2 tab PO QID finasteride 5 mg tablet 5 mg PO QAM aspirin 81 mg Capsule 81 mg PO HS oxycodone-acetaminophen [Percocet] 5-325 mg tablet 1 tab PO Q6H PRN (Reason: pain) Qty: 14 0RF Discharge Orders: Discharge Order (Routine); Ordered 11/09/23 Ordered By: Isai Sweeney Admission Data Admit Date/Time: 11/07/23 04:23 Attending Provider: Aaron Burt Admit Provider: Aaron Burt Primary Care Provider: Murali Barlow Other Providers: Aaron Burt Other Interventions: Discharge Summary Assessment (RN) Last Done: 11/09/23 12:20
== END 2023-11-09 13:53 | disposition home or self-care (01) ==
LOC: ED 21:46 → INTOOBSV 11-07 04:23 → EDINP 11-07 04:23 → 3W 11-07 05:55

== ENCOUNTER 2023-12-20 23:28 | Observation (INO) ==
--- NOTE | 2023-12-21 00:20 | Emergency Department Note ---
Impression & Plan Incarcerated left inguinal hernia The patient went to the OR with Dr. Fuller ED Provider Note NAME: JASMINE REY AGE: 73 SEX: Male INFORMANT: Patient and his ED PROVIDER(S): Mary Chadwick DO CHIEF COMPLAINT: Left inguinal pain PLAN: Disposition: To the OR with Dr. Fuller MEDICAL DECISION MAKING: This is a 73-year-old male patient who underwent surgical repair of a left inguinal hernia on November 05. Over the past 2 days, the patient began to have significant pain in the surgical site. He noticed this after mowing the grass on a riding lawnmower. On physical exam, the patient has an obvious incarcerated left inguinal hernia. This was not easily reducible. Patient has severe pain in that area. Laboratory studies reveal no leukocytosis or anemia. Potassium is slightly low at 3.3. Renal function is normal. Glucose is normal. Patient went for CT scan of the abdomen/pelvis which confirms an incarcerated hernia with a loop of small bowel concerning for bowel obstruction. I contacted the surgeon on-call-Dr. Fuller and made her aware of the situation and she will take the patient to the OR. Patient's pain was treated with IV Dilaudid Care/management discussed with: The patient and his along with the surgeon on-call Triage Nursing notes: reviewed and agree with them. Vital Signs: reviewed and remarkable for hypertension Additional History obtained from: is at the bedside Chronic Medical/Social Conditions affecting care: Parkinson's disease Prior/ Outside/ External records reviewed: Operative note from November 05 Differential Diagnosis: Postsurgical complication; inguinal hernia recurrence, small bowel obstruction, incarcerated hernia Diagnostics, independently interpreted by me: Imaging studies: CT scan of the abdomen/pelvis: As per stat rad HPI: 73 year old Male arrives for evaluation of left inguinal canal pain. Patient had a left inguinal hernia repair on November 05. He describes having normal post surgical course. He noticed increasing pain in the left surgical area over the past 24 hours after riding on a lawnmower to mow his grass. PAST MEDICAL HISTORY: See Below, PAST SURGICAL HISTORY: See Below, SOCIAL HISTORY: See Below, HOME MEDICATIONS: See list ALLERGIES: None VITALS: See Below PHYSICAL EXAMINATION: HEENT: Head - normocephalic and atraumatic. Pupils are equal, round, and reactive to light. Extraocular eye muscles are intact, and sclera are anicteric. Nose - moist nasal mucosa without discharge. Mouth - moist buccal mucosa. Oropharynx is nonerythematous and there is no tonsillar exudate or edema noted. Neck: Supple; no JVD, nuchal rigidity, cervical lymphadenopathy, or auscultated bruits. Heart: Regular rate and rhythm. There is a normal S1 and S2 with no murmurs, clicks, or gallops appreciated. Lungs: Clear to auscultation bilaterally with no wheezes, rales, or rhonchi. Abdomen: Soft, exquisite tenderness to palpation in the left inguinal canal where the patient has an obvious incarcerated left inguinal hernia. Rest of the abdomen is soft and nontender. Extremities: No evidence of cyanosis, clubbing, or edema. There are easily palpable peripheral pulses. Skin: warm and dry with good turgor and no rashes. Emergency department treatment: IV Dilaudid, IV Zofran, IV lactated Ringer's Emergency department course: The patient was evaluated in room B-5. A complete history and physical was performed laboratory studies were drawn as above. Patient was medicated with IV Zofran and IV Dilaudid. Patient went for CT scan of the abdomen/pelvis. I reviewed these findings with the patient and his . I discussed the case with general surgery. Past Med/Surg History Problem List (Updated 12/22/23 @ 01:38 by Mary Chadwick DO) Incarcerated left inguinal hernia (Acute) Unilateral incarcerated inguinal hernia Acute UTI (Acute) Post-operative pain (Acute) Postoperative pain Medical History CAD (coronary artery disease) 06/2021- stents x2 Follows with Dr. Vargas/Joshua ICD (implantable cardioverter-defibrillator) in place Implanted 2021, [employer] Hernández catheter in place BPH (benign prostatic hyperplasia) Hx of myocardial infarction 06/2021- stents x2 Follows with Dr. Vargas/Joshua Parkinson's disease Surgical History History of implantable cardioverter-defibrillator (ICD) insertion 2021 Hx laparoscopic cholecystectomy History of esophagogastroduodenoscopy (EGD) Hx of colonoscopy [place] teeth extracted Hx of sinus surgery Hx of tonsillectomy History of cardiac cath 06/2021- stents x2 Social History Smoking Status: Former smoker Tobacco Type: Cigarettes Second Hand Exposure: No; Do You Dip or Chew Tobacco: No; Hx Alcohol Use: No Hx Substance Use: No Preferred Language: Belarusian Communication Ability: Effective Orange Peel Operator Required: No Beliefs That Will Affect Care: None Current Living Situation: Spouse Feels Safe at Home: Yes Safety Concerns: Feels Safe At This Time Assistive Devices: None Allergies Allergies Allergy/AdvReac Type Severity Reaction Status Date / Time No Known Allergies Allergy Verified 11/07/23 00:53 Home Meds Home Medications Medication Instructions Recorded Confirmed amantadine HCl 100 mg capsule 100 mg PO BID 10/25/23 12/21/23 aspirin 81 mg capsule 81 mg PO HS 10/25/23 12/21/23 carbidopa 25 mg-levodopa 100 mg 1 - 2 tab PO UD 10/25/23 12/21/23 tablet entacapone 200 mg tablet 400 mg PO QID 10/25/23 12/21/23 finasteride 5 mg tablet 5 mg PO QAM 10/25/23 12/21/23 metoprolol succinate 25 mg 25 mg PO QAM 10/25/23 12/21/23 tablet,extended release 24 hr tamsulosin 0.4 mg capsule 0.8 mg PO HS 10/25/23 12/21/23 valacyclovir 500 mg tablet 250 mg PO UD 10/25/23 12/21/23 clotrimazole-betamethasone 1 1 applic topical BID 12/21/23 12/21/23 %-0.05 % topical cream furosemide 40 mg tablet 40 mg PO DAILY 12/21/23 12/21/23 Previous Rx's Medication Instructions Recorded oxycodone-acetaminophen 5 mg-325 1 tab PO Q6H PRN pain #14 tabs 11/06/23 mg tablet (Percocet) Results & Data (ED) Vital Signs Vital Signs - 24 hr 12/21/23 02:00 12/21/23 05:57 Temperature 36.1 C L Temperature Source Temporal Artery Scan Pulse Rate [Apical] 77 92 H Pulse Rhythm [Apical] Regular Regular Pulse Strength [Apical] Normal Normal Respiratory Rate 16 14 Respiratory Effort / Characteristics Non-Labored Non-Labored Spontaneous Respiratory Depth Normal Normal Respiratory Pattern Regular Regular Blood Pressure [Right Arm] 156/93 H 136/73 Blood Pressure Mean [Right Arm] 114 94 Blood Pressure Position [Right Arm] Lying Semi-fowlers Pulse Oximetry 94 97 Oxygen Delivery Method Room Air Oxymask Oxygen Flow Rate 6 Laboratory Data 12/21/23 00:20 12/21/23 00:20 Lab Results 12/21/23 Range/Units 00:20 WBC 9.86 (4.8-10.8) K/ul RBC 4.97 (4.70-6.10) M/uL Hgb 15.9 (14.0-18.0) g/dl Hct 45.6 (42.0-52.0) % MCV 91.8 (80.0-100.0) fL MCH 32.0 (25.0-34.0) pg MCHC 34.9 (32.0-36.0) g/dL RDW Std Deviation 44.2 (36.4-46.3) fL RDW Coeff of Lisette 13.1 (11.5-14.5) % Plt Count 127 L (130-400) K/uL MPV 12.3 (9.4-12.4) fL Immature Gran % (Auto) 0.3 % Neut % (Auto) 78.8 % Lymph % (Auto) 10.8 % Butler % (Auto) 9.2 % Eos % (Auto) 0.7 % Baso % (Auto) 0.2 % Neut # (Auto) 7.77 H (1.40-6.50) K/uL Lymph # (Auto) 1.06 L (1.20-3.40) K/uL Butler # (Auto) 0.91 H (0.11-0.59) K/uL Eos # (Auto) 0.07 (0.00-0.50) K/uL Baso # (Auto) 0.02 (0.00-0.20) K/uL Immature Gran # (Auto) 0.03 (0.01-0.20) K/uL Sodium 141 (136-145) mmol/L Potassium 3.3 L (3.5-5.1) mmol/L Chloride 102 (98-107) mmol/L Carbon Dioxide 32 (21-32) mmol/L Anion Gap 7 (3-11) BUN 21 (6-23) mg/dl Creatinine 1.18 (0.6-1.4) mg/dl Est Cr Clr Drug Dosing 43.0 ml/min Est GFR ( Amer) 69.5 ml/min Est GFR (Non-Af Amer) 60.0 ml/min BUN/Creatinine Ratio 17.8 (10-20) Glucose 122 H (70-99(Fasting)) mg/dl Calcium 9.9 (8.6-10.3) mg/dl Total Bilirubin 1.6 H (0.2-1.0) mg/dl AST 14 (13-39) U/L ALT < 3 L (7-52) U/L Alkaline Phosphatase 69 (34-104) U/L Total Protein 6.9 (6.0-8.3) gm/dl Albumin 4.4 (3.4-5.0) gm/dl Globulin 2.5 (2.5-4.0) gm/dl Albumin/Globulin Ratio 1.8 (0.9-2) Lipase 18 (11-82) U/L Administered Medications Amantadine HCl (Amantadine Hcl 100 Mg Capsule) 100 mg PO BID [facility] Stop: 01/20/24 08:59 Last Admin: 12/21/23 20:42 Dose: 100 mg Documented By: Admin: 12/21/23 09:19 Dose: 100 mg Documented By: ALBARO Aspirin (Aspirin 81 Mg Ectab) 81 mg PO HS [facility] Stop: 01/20/24 20:59 Last Admin: 12/21/23 20:42 Dose: 81 mg Documented By: JCARLOS Betamethasone/Clotrimazole (Clotrimazole/Betamethasone Cr 15 Gm Tube) 1 appln EXT BID [facility] Stop: 01/20/24 08:59 Last Admin: 12/21/23 20:42 Dose: 1 appln Documented By: Admin: 12/21/23 09:17 Dose: 1 appln Documented By: ALBARO Carbidopa/Levodopa (Carbidopa/Levodopa 25/100mg Tab) 2 tab PO TIDM [facility] Stop: 01/20/24 07:59 Last Admin: 12/21/23 18:15 Dose: 2 tab Documented By: Admin: 12/21/23 13:20 Dose: 2 tab Documented By: Admin: 12/21/23 09:18 Dose: 2 tab Documented By: ALBARO Carbidopa/Levodopa (Carbidopa/Levodopa 25/100mg Tab) 1 tab PO HS [facility] Stop: 01/20/24 20:59 Last Admin: 12/21/23 20:42 Dose: 1 tab Documented By: JCARLOS Entacapone (Entacapone 200 Mg Tab) 400 mg PO 0800,1200,1700,2100 [facility] Stop: 01/20/24 07:59 Last Admin: 12/21/23 20:42 Dose: 400 mg Documented By: Admin: 12/21/23 18:16 Dose: 400 mg Documented By: Admin: 12/21/23 13:20 Dose: 400 mg Documented By: Admin: 12/21/23 09:18 Dose: 400 mg Documented By: ALBARO [facility]asteride ([facility]ide 5 Mg Tab) [facility] [place]: 01/20/24 08:59 Last Admin: 12/21/23 09:18 Dose: 5 mg Documented By: ALBARO Furosemide (Furosemide 40 Mg Tab) 40 mg PO DAILY [facility] Stop: 01/20/24 08:59 Last Admin: 12/21/23 09:17 Dose: 40 mg Documented By: ALBARO Lactated Ringer's (Lr) 1,000 mls @ 80 mls/hr IV .[id number] [facility] Stop: 01/20/24 02:59 Last Infusion: 12/21/23 21:49 Dose: 80 mls/hr Documented By: Admin: 12/21/23 16:24 Dose: 80 mls/hr Documented By: Infusion: 12/21/23 16:23 Dose: Infused Documented By: Admin: 12/21/23 06:46 Dose: 125 mls/hr Documented By: JCARLOS Metoprolol Succinate (Metoprolol Succ 25mg Ext Rel Tab) 25 mg PO QA [facility] Stop: 01/20/24 08:59 Last Admin: 12/21/23 09:19 Dose: 25 mg Documented By: ALBARO Oxycodone/Acetaminophen (Oxycodone/Acetaminophen 5mg/325mg Tab) 1 tab PO Q6H PRN PRN Reason: pain Stop: 01/04/24 06:40 Last Admin: 12/21/23 18:15 Dose: 1 tab Documented By: ALBARO Tamsulosin HCl (Tamsulosin Hcl 0.4 Mg Cap) 0.8 mg PO HS [facility] Stop: 01/20/24 20:59 Last Admin: 12/21/23 20:43 Dose: 0.8 mg Documented By: JCARLOS Discontinued Medications Bupivacaine HCl (Bupivacaine 0.5 % 5 Mg/1 Ml Mpf 30ml Vial) Confirm Administered Dose 30 ml .ROUTE .STK-MED ONE Stop: 12/21/23 03:24 Last Admin: 12/21/23 05:46 Dose: 15 ml Documented By: CHALO Cefazolin Sodium (Cefazolin 330 Mg/Ml 1 Gm Vial) 1,000 mg IM NOW STA; Protocol Stop: 12/21/23 04:36 Last Admin: 12/21/23 04:39 Dose: Not Given Documented By: JULIA Hydromorphone HCl (Hydromorphone Inj 0.5 Mg/0.5 Ml Syr) 0.5 mg IV NOW STA Stop: 12/21/23 00:50 Last Admin: 12/21/23 00:55 Dose: 0.5 mg Documented By: MARCO ANTONIO Cefazolin Sodium (Ancef 2000mg) 2,000 mg in 15 mls @ 2.5 mls/min IV NOW STA Stop: 12/21/23 04:01 Last Admin: 12/21/23 04:22 Dose: 2.5 mls/min Documented By: JULIA Ioversol (Optiray 320 100ml) 93 ml IV ONCE ONE Stop: 12/21/23 01:59 Last Admin: 12/21/23 01:58 Dose: 93 ml Documented By: AMINA Lidocaine/Epinephrine (Lidocaine 1%/Epinephrine 1:100,000 50 Ml Vial) Confirm Administered Dose 50 ml .ROUTE .STK-MED ONE Stop: 12/21/23 03:24 Last Admin: 12/21/23 05:47 Dose: 15 ml Documented By: CHALO Ondansetron HCl (Ondansetron Inj 2 Mg/Ml 2 Ml Vial) 4 mg IV NOW STA Stop: 12/21/23 00:50 Last Admin: 12/21/23 00:55 Dose: 4 mg Documented By: MARCO ANTONIO Potassium Chloride (Potassium Chloride Crtab 20 Meq Tabcr) 40 meq PO NOW ONE Stop: 12/21/23 16:04 Last Admin: 12/21/23 18:34 Dose: 40 meq Documented By: VMM Discharge Plan Visit Data Chief Complaint: Abdominal Pain Stated Complaint: ABD PAIN AND LUMP FROM [facility] ED Provider: Mary Chadwick Discharge Problem: Incarcerated left inguinal hernia Patient Disposition: Admitted As Inpatient Condition: Good Discharge Instructions Interventions: ED Discharge Assessment Last Done: 12/21/23 03:43
[2023-12-21 00:52] LABS: Basophils # (auto) 0.02 K/uL (0.00-0.20); Basophils % (auto) 0.2 %; Eosinophils # (auto) 0.07 K/uL (0.00-0.50); Eosinophils % (auto) 0.7 %; Hematocrit (blood only) 45.6 % (42.0-52.0); Hemoglobin 15.9 g/dl (14.0-18.0); Immature Granulocytes # (auto) 0.03 K/uL (0.01-0.20); Immature Granulocytes % (auto) 0.3 %; Lymphocytes # (auto) 1.06 K/uL (1.20-3.40); Lymphocytes % (auto) 10.8 %; Mean Corpuscular Hgb Conc 34.9 g/dL (32.0-36.0); Mean Corpuscular Volume 91.8 fL (80.0-100.0); Mean Platelet Volume 12.3 fL (9.4-12.4); Monocytes # (auto) 0.91 K/uL (0.11-0.59); Monocytes % (auto) 9.2 %; Neutrophils # (auto) 7.77 K/uL (1.40-6.50); Neutrophils % (auto) 78.8 %; Platelet Count 127 K/uL (130-400); RDW Coefficient of Variation 13.1 % (11.5-14.5); RDW Standard Deviation 44.2 fL (36.4-46.3); Red Blood Count 4.97 M/uL (4.70-6.10); White Blood Count 9.86 K/ul (4.8-10.8)
[2023-12-21] MEDS: HYDROmorphone INJ 0.5 MG/0.5 ML SYR IV STA (00:55)
[2023-12-21] MEDS: ONDANSETRON INJ 2 MG/ML 2 ML VIAL IV STA (00:55)
[2023-12-21 01:10] LABS: Anion Gap 7 (3-11); BUN Creatinine Ratio 17.8 (10-20); Blood Urea Nitrogen 21 mg/dl (6-23); Calcium 9.9 mg/dl (8.6-10.3); Carbon Dioxide 32 mmol/L (21-32); Chloride 102 mmol/L (98-107); Est GFR (African American) 69.5 ml/min; Glucose 122 mg/dl (70-99(Fasting)); Potassium 3.3 mmol/L (3.5-5.1); Sodium 141 mmol/L (136-145)
[2023-12-21 01:17] LABS: Alanine Aminotransferase < 3 U/L (7-52); Albumin Globulin Ratio 1.8 (0.9-2); Albumin Level 4.4 gm/dl (3.4-5.0); Alkaline Phosphatase 69 U/L (34-104); Aspartate Aminotransferase 14 U/L (13-39); Bilirubin,Total 1.6 mg/dl (0.2-1.0); Globulin 2.5 gm/dl (2.5-4.0); Lipase 18 U/L (11-82); Total Protein 6.9 gm/dl (6.0-8.3)
[2023-12-21] MEDS: OPTIRAY 320 100ml IV ONE (01:58)
--- NOTE | 2023-12-21 02:31 | CT Scan Report ---
Exam(s): CT ABDOMEN + PELVIS With Contrast IV Amt: 93 cc's optiray 320 EXAM: CT Abdomen and Pelvis With Intravenous Contrast CLINICAL HISTORY: Reason for exam: eval for incarcerated left inguinal hernia. TECHNIQUE: Axial computed tomography images of the abdomen and pelvis with intravenous contrast. CTDI is 9.4 mGy and DLP is 499.11 mGy-cm. Automated exposure control was utilized for the study. A dose lowering technique was utilized adhering to the principles of ALARA. CONTRAST: Patient received 93 cc's optiray 320 of IV contrast COMPARISON: November 07, 2023 FINDINGS: Lung bases: Unremarkable. No mass. No consolidation. ABDOMEN: Liver: Unremarkable. No mass. Gallbladder and bile ducts: Mild biliary duct prominence postcholecystectomy. No choledocholithiasis is seen. Pancreas: Unremarkable. No mass. No ductal dilation. Spleen: Unremarkable. No splenomegaly. Adrenals: Unremarkable. No mass. Kidneys and ureters: Unremarkable. No solid mass. No hydronephrosis. Stomach and bowel: There is a 5 cm left inguinal hernia containing the short segment of small bowel. There is mild edema within the hernia extending inferiorly to the scrotum. Proximal small bowel loops are borderline dilated and demonstrate gas fluid levels suggesting intermediate grade bowel obstruction at the site of hernia. No pneumoperitoneum or abscess is seen. The stomach is distended with ingested fluid but nondilated. PELVIS: Appendix: No findings to suggest acute appendicitis. Bladder: Unremarkable. No mass. Reproductive: Unremarkable as visualized. ABDOMEN and PELVIS: Intraperitoneal space: See above. Bones/joints: Previous multilevel laminectomy throughout the mid to lower lumbar spine. Moderate degenerative changes are present. No acute fracture or subluxation is seen. Soft tissues: See above. Vasculature: The abdominal aorta is heavily calcified but nondilated. Lymph nodes: Unremarkable. No enlarged lymph nodes. Tubes, lines and devices: The heart is mildly enlarged. There is a pacing device in place. Severe coronary calcification is present. IMPRESSION: There is a 5 cm left inguinal hernia containing the short segment of small bowel. There is mild edema within the hernia extending inferiorly to the scrotum. Consider incarceration. Proximal small bowel loops are borderline dilated and demonstrate gas fluid levels suggesting intermediate to high grade bowel obstruction at the site of hernia. No pneumoperitoneum or abscess is seen. Communications: Call Doctor Above results Electronically signed by: Lance Pina MD 12/21/23 02:29 AM
--- NOTE | 2023-12-21 02:53 | History & Physical Report ---
Date of Service December 21, 2023 Assessment & Plan (1) Unilateral incarcerated inguinal hernia: Plan: At site of recent laparascopic repair on left side. Will need urgent exploration, reduction and repair with mesh. Will plan on open repair. Risks of bleeding, infection, injury to bowel or need for bowel resection, nerve injury causing numbness or pain (ilioinguinal) and higher risk of recurrence again given urgent nature of repair and likely weak tissue all discussed. Will plan on OR tonight. Consent signed. Explained importance of postop restrictions. Will plan on hospital admission afterwards to allow for high grade SBO to resolve. (2) CAD (coronary artery disease): Plan: s/p stents. on aspirin - will continue (3) ICD (implantable cardioverter-defibrillator) in place: History of Present Illness Chief Complaint: pain in right groin site Primary Care Provider: Murali Barlow 73 yr old man with history of left inguinal hernia s/p laparoscopic repair by Dr Herrmann on 11/05/24 with mesh who presents with recurrence containing loop of bowel causing high grade SBO. Postop was admitted to hospital for pain control for 2-[address] at that time showed no evidence of recurrence. Was doing well until today when he rode a dumper bailer operator to mow his lawn. Does admit to "overdoing it" and not following restrictions after the surgery. Subsequently, developed a pain and bulge in the left groin. No nausea or vomiting. Last meal was yesterday evening. Normal bowel habits. When the pain and bulge persisted, he came to ER for evaluation. CT scan shows loop of small bowel in left inguinal canal causing a high grade SBO. PMHx notable for Parkinson's and history of PR 2.5 yrs ago for which he underwent cardiac stents. He is on aspirin. He has a pacemaker/ defibrillator but is not dependent on it. Allergies Allergy/AdvReac Type Severity Reaction Status Date / Time No Known Allergies Allergy Verified 11/07/23 00:53 Home Medications Medication Instructions Recorded Confirmed Type amantadine HCl 100 mg capsule 100 mg PO BID 10/25/23 12/21/23 History aspirin 81 mg capsule 81 mg PO HS 10/25/23 12/21/23 History carbidopa 25 mg-levodopa 100 mg 1 - 2 tab PO UD 10/25/23 12/21/23 History tablet entacapone 200 mg tablet 400 mg PO QID 10/25/23 12/21/23 History finasteride 5 mg tablet 5 mg PO QAM 10/25/23 12/21/23 History metoprolol succinate 25 mg 25 mg PO QAM 10/25/23 12/21/23 History tablet,extended release 24 hr tamsulosin 0.4 mg capsule 0.8 mg PO HS 10/25/23 12/21/23 History valacyclovir 500 mg tablet 250 mg PO UD 10/25/23 12/21/23 History oxycodone-acetaminophen 5 mg-325 1 tab PO Q6H PRN pain #14 tabs 11/06/23 12/21/23 Rx mg tablet (Percocet) clotrimazole-betamethasone 1 1 applic topical BID 12/21/23 12/21/23 History %-0.05 % topical cream furosemide 40 mg tablet 40 mg PO DAILY 12/21/23 12/21/23 History Past Med/Surg History Problem List (Updated 12/21/23 @ 02:50 by Alyssa Fullre MD) Unilateral incarcerated inguinal hernia Acute UTI (Acute) Post-operative pain (Acute) Postoperative pain Medical History CAD (coronary artery disease) 06/2021- stents x2 Follows with Dr. Vargas/Joshua ICD (implantable cardioverter-defibrillator) in place Implanted 2021, [place] [employer] Hernández catheter in place BPH (benign prostatic hyperplasia) Hx of myocardial infarction 06/2021- stents x2 Follows with Dr. Batista Parkinson's disease Surgical History History of implantable cardioverter-defibrillator (ICD) insertion 2021 Hx laparoscopic cholecystectomy History of esophagogastroduodenoscopy (EGD) Hx of colonoscopy [place] teeth extracted Hx of sinus surgery Hx of tonsillectomy History of cardiac cath 06/2021- stents x2 Social History Smoking Status: Former smoker Second Hand Exposure: No; Do You Dip or Chew Tobacco: No; Hx Alcohol Use: No Hx Substance Use: No Preferred Language: Slovenian Communication Ability: Effective Glaze Carrier Required: No Beliefs That Will Affect Care: None Current Living Situation: Spouse and Family Feels Safe at Home: Yes Assistive Devices: None Review of Systems Review of Systems: All systems reviewed & are unremarkable except as noted in HPI & below Physical Exam Constitutional: WD/WN, vitals as above Eyes: PERRL, conjunctivae normal, anicteric sclerae Neck: trachea midline, no thyromegaly Respiratory: normal respiratory effort, lungs clear to auscultation Cardiovascular: Rate/Rhythm: regular rate and regular rhythm Heart Sounds: + murmur pacemaker present left upper chest Gastrointestinal (Abdomen): normal bowel sounds, soft, nontender, no hepatosplenomegaly Percussion/Palpation: + hernia (large left incarcerated hernia) Musculoskeletal: Extremities: extremities normal to inspection Neurologic: awake; no focal motor deficits mild tremor present Psychiatric: A+Ox3, euthymic affect Results & Data Results & Data Vital Signs (Past 12 Hours) Vital Signs Temp Pulse Pulse Resp BP BP Pulse Ox 12/21/23 02:00 77 16 156/93 H 94 12/21/23 00:50 77 12/21/23 00:20 78 20 158/97 H 97 12/21/23 00:13 76 20 97 12/20/23 23:33 36.5 C 80 169/93 H 98 O2 Del Method 12/21/23 02:00 Room Air 12/21/23 00:50 12/21/23 00:20 Room Air 12/21/23 00:13 12/20/23 23:33 Room Air Laboratory Results 12/21/23 Range/Units 00:20 WBC 9.86 (4.8-10.8) K/ul RBC 4.97 (4.70-6.10) M/uL Hgb 15.9 (14.0-18.0) g/dl Hct 45.6 (42.0-52.0) % MCV 91.8 (80.0-100.0) fL MCH 32.0 (25.0-34.0) pg MCHC 34.9 (32.0-36.0) g/dL RDW Std Deviation 44.2 (36.4-46.3) fL RDW Coeff of Lisette 13.1 (11.5-14.5) % Plt Count 127 L (130-400) K/uL MPV 12.3 (9.4-12.4) fL Immature Gran % (Auto) 0.3 % Neut % (Auto) 78.8 % Lymph % (Auto) 10.8 % [place] % (Auto) 9.2 % Eos % (Auto) 0.7 % Baso % (Auto) 0.2 % Neut # (Auto) 7.77 H (1.40-6.50) K/uL Lymph # (Auto) 1.06 L (1.20-3.40) K/uL [place] # (Auto) 0.91 H (0.11-0.59) K/uL Eos # (Auto) 0.07 (0.00-0.50) K/uL Baso # (Auto) 0.02 (0.00-0.20) K/uL Immature Gran # (Auto) 0.03 (0.01-0.20) K/uL Sodium 141 (136-145) mmol/L Potassium 3.3 L (3.5-5.1) mmol/L Chloride 102 (98-107) mmol/L Carbon Dioxide 32 (21-32) mmol/L Anion Gap 7 (3-11) BUN 21 (6-23) mg/dl Creatinine 1.18 (0.6-1.4) mg/dl Est Cr Clr Drug Dosing 43.0 ml/min Est GFR ( Amer) 69.5 ml/min Est GFR (Non-Af Amer) 60.0 ml/min BUN/Creatinine Ratio 17.8 (10-20) Glucose 122 H (70-99(Fasting)) mg/dl Calcium 9.9 (8.6-10.3) mg/dl Total Bilirubin 1.6 H (0.2-1.0) mg/dl AST 14 (13-39) U/L ALT < 3 L (7-52) U/L Alkaline Phosphatase 69 (34-104) U/L Total Protein 6.9 (6.0-8.3) gm/dl Albumin 4.4 (3.4-5.0) gm/dl Globulin 2.5 (2.5-4.0) gm/dl Albumin/Globulin Ratio 1.8 (0.9-2) Lipase 18 (11-82) U/L Diagnostic Findings DDENDUM: 12/21/23 02:34 Call Doctor Regarding Above results, called Dr. Chadwick on 12/20 02:34 (-04:00) Electronically signed by: Lance Pina MD Electronically signed by: Lance Pina MD 12/21/23 02:29 AM ADDENDUM END Exam(s): CT ABDOMEN + PELVIS With Contrast IV Amt: 93 cc's optiray 320 EXAM: CT Abdomen and Pelvis With Intravenous Contrast CLINICAL HISTORY: Reason for exam: eval for incarcerated left inguinal hernia. TECHNIQUE: Axial computed tomography images of the abdomen and pelvis with intravenous contrast. CTDI is 9.4 mGy and DLP is 499.11 mGy-cm. Automated exposure control was utilized for the study. A dose lowering technique was utilized adhering to the principles of ALARA. CONTRAST: Patient received 93 cc's optiray 320 of IV contrast COMPARISON: November 07, 2023 FINDINGS: Lung bases: Unremarkable. No mass. No consolidation. ABDOMEN: Liver: Unremarkable. No mass. Gallbladder and bile ducts: Mild biliary duct prominence postcholecystectomy. No choledocholithiasis is seen. Pancreas: Unremarkable. No mass. No ductal dilation. Spleen: Unremarkable. No splenomegaly. Adrenals: Unremarkable. No mass. Kidneys and ureters: Unremarkable. No solid mass. No hydronephrosis. Stomach and bowel: There is a 5 cm left inguinal hernia containing the short segment of small bowel. There is mild edema within the hernia extending inferiorly to the scrotum. Proximal small bowel loops are borderline dilated and demonstrate gas fluid levels suggesting intermediate grade bowel obstruction at the site of hernia. No pneumoperitoneum or abscess is seen. The stomach is distended with ingested fluid but nondilated. PELVIS: Appendix: No findings to suggest acute appendicitis. Bladder: Unremarkable. No mass. Reproductive: Unremarkable as visualized. ABDOMEN and PELVIS: Intraperitoneal space: See above. Bones/joints: Previous multilevel laminectomy throughout the mid to lower lumbar spine. Moderate degenerative changes are present. No acute fracture or subluxation is seen. Soft tissues: See above. Vasculature: The abdominal aorta is heavily calcified but nondilated. Lymph nodes: Unremarkable. No enlarged lymph nodes. Tubes, lines and devices: The heart is mildly enlarged. There is a pacing device in place. Severe coronary calcification is present. IMPRESSION: There is a 5 cm left inguinal hernia containing the short segment of small bowel. There is mild edema within the hernia extending inferiorly to the scrotum. Consider incarceration. Proximal small bowel loops are borderline dilated and demonstrate gas fluid levels suggesting intermediate to high grade bowel obstruction at the site of hernia. No pneumoperitoneum or abscess is seen. Communications: Call Doctor Above results
[2023-12-21] MEDS ORDERED: fentaNYL citrate PF 100 MCG/2 ML VIAL IV PRN (03:43)
[2023-12-21] MEDS ORDERED: ONDANSETRON INJ 2 MG/ML 2 ML VIAL IV PRN ×2 (03:43→06:41)
[2023-12-21] MEDS ORDERED: ePHEDrine sulfate 50 MG/ML AMP IV PRN (03:43)
[2023-12-21] MEDS ORDERED: ATROPINE SULFATE 0.1 MG/ML 10ML SYR IV PRN (03:43)
--- NOTE | 2023-12-21 03:43 | Anesthesiology Consultation ---
Date of Service December 21, 2023 Assessment & Plan Chart Review Chart Review: Acceptable Risk for Surgery and Patient NOT seen in Pre Admission Testing Consults Requested none ASA [id number] Proposed Anesthesia Anesthesia Type: General Risk / Benefits Reviewed With: PT / POA / Parent / Guardian, Accepts Plan and Informed Consent Obtained History Surgery Operation Date: 12/21/23 04:00 Proposed Procedures p Inguinal Hernia Repair - Alyssa Fuller MD Height/Weight Height: 5 ft 3 in Weight: 56.2 kg Allergies Allergy/AdvReac Type Severity Reaction Status Date / Time No Known Allergies Allergy Verified 11/07/23 00:53 Medications Home Medications Medication Instructions Recorded Confirmed Last Taken amantadine HCl 100 mg capsule 100 mg PO BID 10/25/23 12/21/23 11/06/23 07:30 aspirin 81 mg capsule 81 mg PO HS 10/25/23 12/21/23 11/06/23 carbidopa 25 mg-levodopa 100 mg 1 - 2 tab PO UD 10/25/23 12/21/23 11/06/23 07:00 tablet entacapone 200 mg tablet 400 mg PO QID 10/25/23 12/21/23 11/06/23 07:00 finasteride 5 mg tablet 5 mg PO QAM 10/25/23 12/21/23 11/06/23 07:00 metoprolol succinate 25 mg 25 mg PO QAM 10/25/23 12/21/23 11/06/23 07:00 tablet,extended release 24 hr tamsulosin 0.4 mg capsule 0.8 mg PO HS 10/25/23 12/21/23 11/06/23 valacyclovir 500 mg tablet 250 mg PO UD 10/25/23 12/21/23 11/06/23 07:00 oxycodone-acetaminophen 5 mg-325 1 tab PO Q6H PRN pain #14 tabs 11/06/23 12/21/23 Unknown mg tablet (Percocet) clotrimazole-betamethasone 1 1 applic topical BID 12/21/23 12/21/23 Unknown %-0.05 % topical cream furosemide 40 mg tablet 40 mg PO DAILY 12/21/23 12/21/23 Unknown Past Medical History Medical History CAD (coronary artery disease) 06/2021- stents x2 Follows with Dr. Vargas/Joshua ICD (implantable cardioverter-defibrillator) in place Implanted 2021, [employer] Hernández catheter in place BPH (benign prostatic hyperplasia) Hx of myocardial infarction 06/2021- stents x2 Follows with Dr. Vargas/Joshua Parkinson's disease Exercise / Class Metabolic Activity II 4-5 Yardwork/Stairs/Walk up hill Past Surgical History Surgical History History of implantable cardioverter-defibrillator (ICD) insertion 2021 Hx laparoscopic cholecystectomy History of esophagogastroduodenoscopy (EGD) Hx of colonoscopy [place] teeth extracted Hx of sinus surgery Hx of tonsillectomy History of cardiac cath 06/2021- stents x2 Past Anesthesia History No Hx of Anesthesia Complications and No Family Hx of Anesthesia Complications History of PONV No Hx of PONV and No Hx of Motion Sickness Social History Smoking Status: Former smoker Do You Dip or Chew Tobacco: No Hx Alcohol Use: No Hx Substance Use: No substance use type: does not use Physical Exam Vital Signs Last Vital Signs Temp 36.5 C 12/20/23 23:33 Pulse 77 12/21/23 02:00 Resp 16 12/21/23 02:00 BP 156/93 H 12/21/23 02:00 Pulse Ox 94 12/21/23 02:00 O2 Del Method Room Air 12/21/23 02:00 ENMT Mouth: + dentures (upper plate) Thyromental Distance: > or= 3.5 Finger Breadths Mallampati Class: II Neck normal visual inspection Respiratory normal respiratory effort Auscultation: lungs clear to auscultation bilaterally Cardiovascular Rate/Rhythm: regular rate and regular rhythm Chest (Breasts) Chest: + pacemaker (left chest) Psychiatric Orientation: alert Testing Laboratory Results 12/21/23 00:20 12/21/23 00:20
[2023-12-21] MEDS ORDERED: fentaNYL citrate PF 100 MCG/2 ML VIAL ONE (03:51)
[2023-12-21] MEDS ORDERED: PROPOFOL IV EMULSION 10 MG/ML 20 ML VIAL IV ONE (03:56)
[2023-12-21] MEDS ORDERED: ROCURONIUM BROMIDE 10 MG/ML 5 ML VIAL IV ONE (03:56)
[2023-12-21] MEDS ORDERED: LIDOCAINE 2% 2 ML VIAL/AMP(20MG/ML) INFIL ONE (03:56)
[2023-12-21] MEDS ORDERED: ceFAZolin 330 MG/ML 1 GM VIAL ONE (04:21)
[2023-12-21] MEDS: ceFAZolin 2000MG 2,000 MG/15 ML SYR IV STA (04:22)
[2023-12-21] MEDS ORDERED: PHENYLEPHRINE 100MCG/ML 10ML SYR IV ONE (04:29)
[2023-12-21] MEDS ORDERED: ONDANSETRON INJ 2 MG/ML 2 ML VIAL ONE (04:31)
[2023-12-21] MEDS ORDERED: DEXAMETHASONE SOD INJ 4 MG/ML VIAL ONE (04:31)
[2023-12-21] MEDS ORDERED: KETOROLAC 30 MG/ML VIAL ONE (04:31)
[2023-12-21] MEDS ORDERED: SUGAMMADEX SODIUM 200 MG/2 ML VIAL IV ONE (04:33)
[2023-12-21] MEDS: ceFAZolin 330 MG/ML 1 GM VIAL IM STA (04:39)
[2023-12-21] MEDS: BUPIVACAINE 0.5 % 5 MG/1 ML MPF 30ML VIAL ONE (05:46)
[2023-12-21] MEDS: LIDOCAINE 1%/EPINEPHRINE 1:100,000 50 ML VIAL ONE (05:47)
--- NOTE | 2023-12-21 05:57 | Operative Report ---
Post Operative Report Pre & Post Diagnosis Operation Date: 12/21/23 04:04 Pre-Op Diagnosis: Left incarcerated inguinal hernia, recurrent. Post-Op Diagnosis: Left incarcerated inguinal hernia, recurrent. I identified the patient and participated in the time-out.: Yes Procedure Operation Date: 12/21/23 04:04 Actual Procedures p Open repair of Left inguinal recurrent incarcerated hernia with mesh (Left) - Alyssa Fuller MD Surgeon Alyssa Fuller MD Filament Coil Winder none Estimated Blood Loss 5 Findings Consistent with Post-Op Diagnosis large hernia sac extending towards scrotum - this was left in place indirect hernia containing loop of viable small bowel which as reduced Fluids 1000 cc Specimens none Drains none Anesthesia Type General Complications none Disposition Accompanied Patient To Recovery: No Indications 73-year-old man status post a recent left inguinal hernia repair done laparoscopically in October who presented with a incarcerated recurrence of his hernia containing a loop of small bowel which was causing a high-grade small bowel obstruction. He was consented for urgent repair. Description of Procedure The patient received Ancef preoperatively after the induction of general endotracheal anesthesia he had placement of sequential compression devices. His left groin was clipped and then sterilely prepped and draped. A left inguinal incision was made and carried down through Kathe's fascia to the level of the external oblique and this was opened along the direction of its fibers to a very large dilated external ring. The large spermatic cord was encircled with a Carlos drain. The anterior aspect was opened and the hernia sac entered. There was free fluid and a loop of incarcerated small bowel. The small bowel was viable and was reduced back into the peritoneal cavity. The hernia sac was quite large and extending towards the scrotum. Attempt was made to dissect this free but the tissue was so inflamed that it was difficult to see a clear plane. This the hernia sac was high ligated and the distal portion left in situ. This did give a thicker lumpy or appearance to the spermatic cord distally. The floor was then reinforced with a 3 x 6 inch piece of polypropylene mesh which was cut to reapproximate the anatomic shape. This was sutured with interrupted Prolene stitches to the pubic tubercle medially the shelving edge of the ilioinguinal ligament inferiorly and the fascia superiorly. A slit was created in a keyhole for the spermatic cord. This was also secured with Prolene stitches. The wound was irrigated and noted to be hemostatic. The external oblique fascia was closed along the direction of its fibers with a 2-0 Vicryl running suture. Kathe's was closed with interrupted 3-0 Vicryl stitches. The skin was loosely closed with 4-0 Vicryl suture. Local anesthesia in the form of 1% lidocaine with epinephrine mixed with half percent Marcaine was injected. A total of 30 cc was used. Of note, hemostasis had been noted to be present and the wound was irrigated prior to closure. The patient was awakened and taken to recovery in stable condition. I attest to the content of the Intraoperative Record and any orders documented therein. Any exceptions are noted below.
--- NOTE | 2023-12-21 06:12 | Anesthesiology Progress Note ---
Date of Service December 21, 2023 Anesthesia Post Procedure Vital Signs Vital Signs: Temp Pulse Pulse Resp BP BP Pulse Ox 12/21/23 06:05 91 H 20 131/78 100 12/21/23 05:57 36.1 C L 92 H 14 136/73 97 12/21/23 02:00 77 16 156/93 H 94 12/21/23 00:50 77 12/21/23 00:20 78 20 158/97 H 97 12/21/23 00:13 76 20 97 12/20/23 23:33 36.5 C 80 169/93 H 98 O2 Del Method O2 Flow Rate 12/21/23 06:05 Oxymask 3 12/21/23 05:57 Oxymask 6 12/21/23 02:00 Room Air 12/21/23 00:50 12/21/23 00:20 Room Air 12/21/23 00:13 12/20/23 23:33 Room Air Pain Intensity Abdomen: Pain Intensity: 3 Transfer of Care Handoff Completed per policy Notes Mental Status: alert / awake / arousable Patient Amnestic to Procedure: Yes Nausea / Vomiting: adequately controlled Pain: adequately controlled Airway Patency, RR, SpO2: stable & adequate BP & HR: stable & adequate Hydration State: stable & adequate Anesthetic Complications: no major complications apparent
[2023-12-21] MEDS ORDERED: MoRPHine SULFATE 4 MG/ML 1 ML CARP\\VIAL IV PRN (06:41)
[2023-12-21] MEDS ORDERED: MoRPHine SULFATE 2 MG/ML CARP IV PRN (06:41)
[2023-12-21] MEDS: LACTATED RINGER'S 1,000 ML IV SCH (06:46)
[2023-12-21] MEDS: FUROSEMIDE 40 MG TAB PO SCH (09:17)
[2023-12-21] MEDS: CLOTRIMAZOLE/BETAMETHASONE CR 15 GM TUBE EXT SCH (09:17)
[2023-12-21] MEDS: FINASTERIDE 5 MG TAB PO SCH (09:18)
[2023-12-21] MEDS: ENTACAPONE 200 MG TAB PO SCH (09:18)
[2023-12-21] MEDS: CARBIDOPA/LEVODOPA 25/100MG TAB PO SCH ×2 (09:18→20:42)
[2023-12-21] MEDS: METOPROLOL SUCC 25MG EXT REL TAB PO SCH (09:19)
[2023-12-21] MEDS: AMANTADINE HCL 100 MG CAPSULE PO SCH (09:19)
[2023-12-21 12:10] LABS: Appearance Urine Cloudy (Clear); Bacteria Urine Automated None Seen (None Seen); Bilirubin Urine Negative (Negative); Blood Urine Negative (Negative); Cast Urine Automated 0-2 /lpf (0-2); Color Urine Yellow; Epithelial Cell Urine Auto 0-2 /hpf (0-2); Glucose Urine UA Negative (Negative); Ketones Urine Negative (Negative); Leukocyte Esterase Urine Negative (Negative); Nitrite Urine Negative (Negative); Protein Urine Negative (Negative); RBC Urine Automated 0-2 /hpf (0-2); Urobilinogen Urine Negative (Negative); WBC Urine Automated 0-5 /hpf (0-5); pH Urine 7.5 (4.5-7.5)
--- NOTE | 2023-12-21 15:56 | Surgery Progress Note ---
Date of Service December 21, 2023 Assessment & Plan (1) Unilateral incarcerated inguinal hernia: Plan: s/p open repair. did have loop of small bowel with high grade SBO. will advance diet. If tolerates, likely home tomorrow Admission and Anticipated Discharge Date Admission Date: December 21, 2023 Subjective Pain is well controlled. Passing flatus and tolerating diet (on full liquids) Physical Exam Respiratory: normal respiratory effort, lungs clear to auscultation Cardiovascular: RRR, no murmur, no edema Gastrointestinal (Abdomen): normal bowel sounds, soft, nontender, no hepatosplenomegaly left inguinal incision dressing dry Neurologic: awake; no focal motor deficits Results & Data Vital Signs (Past 12 Hours) Vital Signs Temp Pulse Pulse Resp BP Pulse Ox O2 Del Method 12/21/23 14:32 36.8 C 73 18 100/60 96 Room Air 12/21/23 09:27 36.8 C 87 18 125/72 95 Room Air 12/21/23 08:33 36.5 C 83 18 126/76 96 Room Air 12/21/23 07:36 36.6 C 86 18 128/76 95 Room Air 12/21/23 07:07 36.2 C L 90 18 122/73 94 Room Air 12/21/23 06:37 36.5 C 90 17 134/78 94 Room Air 12/21/23 06:25 36.4 C L 94 H 16 128/73 95 Room Air 12/21/23 06:15 95 H 18 135/76 96 Room Air 12/21/23 06:05 91 H 20 131/78 100 Oxymask 12/21/23 05:57 36.1 C L 92 H 14 136/73 97 Oxymask O2 Flow Rate 12/21/23 14:32 12/21/23 09:27 12/21/23 08:33 12/21/23 07:36 12/21/23 07:07 12/21/23 06:37 12/21/23 06:25 12/21/23 06:15 12/21/23 06:05 3 12/21/23 05:57 6 Laboratory Results 12/21/23 12/21/23 Range/Units 11:43 00:20 WBC 9.86 (4.8-10.8) K/ul RBC 4.97 (4.70-6.10) M/uL Hgb 15.9 (14.0-18.0) g/dl Hct 45.6 (42.0-52.0) % MCV 91.8 (80.0-100.0) fL MCH 32.0 (25.0-34.0) pg MCHC 34.9 (32.0-36.0) g/dL RDW Std Deviation 44.2 (36.4-46.3) fL RDW Coeff of Lisette 13.1 (11.5-14.5) % Plt Count 127 L (130-400) K/uL MPV 12.3 (9.4-12.4) fL Immature Gran % (Auto) 0.3 % Neut % (Auto) 78.8 % Lymph % (Auto) 10.8 % [place] % (Auto) 9.2 % Eos % (Auto) 0.7 % Baso % (Auto) 0.2 % Neut # (Auto) 7.77 H (1.40-6.50) K/uL Lymph # (Auto) 1.06 L (1.20-3.40) K/uL [place] # (Auto) 0.91 H (0.11-0.59) K/uL Eos # (Auto) 0.07 (0.00-0.50) K/uL Baso # (Auto) 0.02 (0.00-0.20) K/uL Immature Gran # (Auto) 0.03 (0.01-0.20) K/uL Sodium 141 (136-145) mmol/L Potassium 3.3 L (3.5-5.1) mmol/L Chloride 102 (98-107) mmol/L Carbon Dioxide 32 (21-32) mmol/L Anion Gap 7 (3-11) BUN 21 (6-23) mg/dl Creatinine 1.18 (0.6-1.4) mg/dl Est Cr Clr Drug Dosing 43.0 ml/min Est GFR ( Amer) 69.5 ml/min Est GFR (Non-Af Amer) 60.0 ml/min BUN/Creatinine Ratio 17.8 (10-20) Glucose 122 H (70-99(Fasting)) mg/dl Calcium 9.9 (8.6-10.3) mg/dl Total Bilirubin 1.6 H (0.2-1.0) mg/dl AST 14 (13-39) U/L ALT < 3 L (7-52) U/L Alkaline Phosphatase 69 (34-104) U/L Total Protein 6.9 (6.0-8.3) gm/dl Albumin 4.4 (3.4-5.0) gm/dl Globulin 2.5 (2.5-4.0) gm/dl Albumin/Globulin Ratio 1.8 (0.9-2) Lipase 18 (11-82) U/L Urine Color Yellow Urine Appearance Cloudy A (Clear) Urine pH 7.5 (4.5-7.5) Ur Specific [place] 1.030 (1.000-1.030) Urine Protein Negative (Negative) Urine Glucose (UA) Negative (Negative) Urine Ketones Negative (Negative) Urine Blood Negative (Negative) Urine Nitrite Negative (Negative) Urine Bilirubin Negative (Negative) Urine Urobilinogen Negative (Negative) Ur Leukocyte Esterase Negative (Negative) Urine WBC (Auto) 0-5 (0-5) /hpf Urine RBC (Auto) 0-2 (0-2) /hpf U Hyaline Cast (Auto) 0-2 (0-2) /lpf U Epithel Cells (Auto) 0-2 (0-2) /hpf Urine Bacteria (Auto) None Seen (None Seen)
[2023-12-21] MEDS: oxyCODONE/ACETAMINOPHEN 5mg/325mg TAB PO PRN (18:15)
[2023-12-21] MEDS: POTASSIUM CHLORIDE CRTAB 20 MEQ TABCR PO ONE (18:34)
[2023-12-21] MEDS: ASPIRIN 81 MG ECTAB PO SCH (20:42)
[2023-12-21] MEDS: TAMSULOSIN HCL 0.4 MG CAP PO SCH (20:43)
[2023-12-22] MEDS: valACYclovir HCL 500 MG TABLET PO SCH (08:19)
--- NOTE | 2023-12-22 09:57 | Surgery Progress Note ---
Date of Service December 22, 2023 Assessment & Plan (1) Incarcerated left inguinal hernia: Plan: Doing well s/p repair. Will discharge today. Admission and Anticipated Discharge Date Admission Date: December 21, 2023 Subjective Feels well. Tolerating regular diet. Pain controlled with PO pain meds. Ambulated yesterday. Passing flatus but no bowel movement yet. Physical Exam Respiratory: normal respiratory effort, lungs clear to auscultation Cardiovascular: RRR, no murmur, no edema Gastrointestinal (Abdomen): soft, normal bowel tones, nondistended, left groin swollen, incision clean, tender over groin Results & Data Vital Signs (Past 12 Hours) Vital Signs Temp Pulse Resp BP Pulse Ox O2 Del Method 12/22/23 07:21 36.8 C 58 L 18 112/71 97 Room Air 12/22/23 07:19 36.8 C 58 L 8 L 112/71 97 Room Air 12/22/23 04:01 36.7 C 79 18 130/78 95 Room Air 12/22/23 00:37 36.7 C 76 17 120/76 96 Room Air
--- NOTE | 2023-12-22 10:01 | Discharge Summary ---
Date of Service December 22, 2023 Admission HPI Per Admitting Provider 73 yr old man with history of left inguinal hernia s/p laparoscopic repair by Dr Herrmann on 11/05/24 with mesh who presents with recurrence containing loop of bowel causing high grade SBO. Postop was admitted to hospital for pain control for 2-[address] at that time showed no evidence of recurrence. Was doing well until today when he rode a shirt marker to mow his lawn. Does admit to "overdoing it" and not following restrictions after the surgery. Subsequently, developed a pain and bulge in the left groin. No nausea or vomiting. Last meal was yesterday evening. Normal bowel habits. When the pain and bulge persisted, he came to ER for evaluation. CT scan shows loop of small bowel in left inguinal canal causing a high grade SBO. PMHx notable for Parkinson's and history of MS 2.5 yrs ago for which he underwent cardiac stents. He is on aspirin. He has a pacemaker/ defibrillator but is not dependent on it. Admission Exam (Per Admitting) Constitutional WD/WN, vitals as above Eyes PERRL, conjunctivae normal, anicteric sclerae Neck trachea midline, no thyromegaly Respiratory normal respiratory effort, lungs clear to auscultation Cardiovascular RRR, no murmur, no edema Rate/Rhythm: regular rate and regular rhythm Heart Sounds: + murmur Gastrointestinal (Abdomen) normal bowel sounds, soft, nontender, no hepatosplenomegaly Percussion/Palpation: + hernia (large left incarcerated hernia) Musculoskeletal Extremities: extremities normal to inspection Neurologic awake; no focal motor deficits Psychiatric A+Ox3, euthymic affect Discharge Data Consultations 12/21/23 02:52 ED Decision to Admit Stat Procedures Performed Operation Date: 12/21/23 04:04 Actual Procedures p Left inguinal hernia repair(Left) - Alyssa Fuller MD Hospital Course (1) Incarcerated left inguinal hernia: Doing well s/p repair. Will discharge today.
== END 2023-12-22 15:07 | disposition home or self-care (01) ==
LOC: ED 23:28 → 3W 12-21 03:48 → OR 12-21 03:48